=== PATIENT | female | born 1985 | race Caucasian/White ===

== ENCOUNTER 2020-04-20 12:41 | Emergency (ER) | payer OTHER, SELFPAY ==
[2020-04-20 12:50] VITALS: BP 151/82; PULSE 90; RESP 16; TEMP 36.4; O2SAT 99
--- NOTE | 2020-04-20 13:19 | ED.SKABFB ---
HPI - Skin/Abscess/Foreign Bdy General Chief complaint: Skin/Abscess/Foreign Body Stated complaint: Allergic Reaction Time Seen by Provider: 04/20/20 13:10 Source: patient and RN notes reviewed Mode of arrival: ambulatory Limitations: no limitations History of Present Illness HPI narrative: Patient presents today complaining of 4-day history of pruritic rash that started at the anterior bra line that spread to the bilateral upper arms that is now today in the lower abdomen and upper legs. Patient denies any change in household products, foods, medications, pets, plant exposure. She has been using Benadryl and aloe at home without relief. She is also complaining of left upper dental pain for several weeks. She has been working to try to see a dentist, but has been unable to make an appointment. Denies any recent antibiotic use. States the affected tooth is broken. Denies fever, shortness of breath, difficulty swallowing, facial swelling. MD complaint: rash Related Data Allergies Allergy/AdvReac Type Severity Reaction Status Date / Time codeine AdvReac Diarrhea Verified 04/20/20 12:56 Review of Systems Review of Systems: Narrative: CONSTITUTIONAL: Denies body aches, fever, chills, or sweats. EYES: Denies visual changes, redness, or discharge. ENT: Denies rhinorrhea, congestion, sore throat, or otalgia. Tooth pain CARDIOVASCULAR: Denies chest pain, palpitations, or edema. RESPIRATORY: Denies cough or dyspnea. GASTROINTESTINAL: Denies abdominal pain, nausea, vomiting, or diarrhea. GENITOURINARY: Denies dysuria or hematuria. SKIN: Denies wounds.+ Pruritic rash MUSCULOSKELETAL: Denies back pain, joint pain, or myalgia. NEUROLOGIC: Denies headache, numbness, tingling, or weakness. PSYCH: Denies depression or anxiety. PMFSH Comments At time of signature, I have reviewed and agree with nursing past medical, surgical, social and family history unless otherwise noted. Please see nursing chart for further information. There is no relevant family history pertinent to the presenting complaint Exam Narrative: Exam Narrative: GENERAL: Well-appearing, well-nourished, and in no acute distress. HEAD: Normocephalic, atraumatic. EYES: EOMI. No redness or drainage. Conjunctivae normal. ENT: Mucous membranes pink and moist. Nares clear. No rhinorrhea. TMs normal bilaterally. Throat normal. Uvula midline. Lateral portion of tooth #15 missing. No swelling or erythema of the gumline. No obvious periapical abscess. NECK: Normal AROM. Supple. No lymphadenopathy. CHEST: No respiratory distress. Clear to auscultation. HEART: Regular rate and rhythm. No murmur appreciated. Normal peripheral pulses. EXTREMITIES: Normal range of motion. No edema. SKIN: Warm, dry. Capillary refill normal. Normal skin turgor. Faintly erythematous papular rash to the lower abdominal fold and bilateral axilla as well as the anterior bra line. No vesicles, drainage, crusting, induration, or signs of cellulitis. NEURO: No focal deficits. Alert and oriented x3. Gait steady. PSYCH: Normal affect. No signs of depression or anxiety. Course Vital Signs Vital signs: Vital Signs Temperature 97.6 F 04/20/20 12:50 Pulse Rate 90 04/20/20 12:50 Respiratory Rate 16 04/20/20 12:50 Blood Pressure 151/82 H 04/20/20 12:50 Pulse Oximetry 99 04/20/20 12:50 Temperature 97.6 F 04/20/20 12:50 Pulse Rate 90 04/20/20 12:50 Respiratory Rate 16 04/20/20 12:50 Blood Pressure 151/82 H 04/20/20 12:50 Pulse Oximetry 99 04/20/20 12:50 Reviewed. Pt has been instructed to follow up with her PCP regarding her elevated blood pressure today. MDM - Skin/Abscess/Foreign Bdy Differential Diagnosis Differential diagnosis: Likely urticaria, herpes zoster, allergic reaction to drug, cellulitis, eczema, insect bites, impetigo, contact dermatitis and other (Dental abscess, dental fracture) Critical Care Time Critical Care Time Critical Care Time: No Discharge
== END 2020-04-20 13:25 | disposition home or self-care (01) ==
PROVIDERS: Emergency Provider Nurse Practitioner; PCP Internal Medicine
DX: L30.9 Dermatitis, unspecified (principal); S02.5XXA Fracture of tooth (traumatic), initial encounter for closed fracture; X58.XXXA Exposure to other specified factors, initial encounter
CPT/HCPCS: 99213; G0463

== ENCOUNTER 2020-11-15 15:05 | Emergency (ER) | payer OTHER, SELFPAY ==
--- NOTE | ~2020-11-15 | XR_ITS ---
XR chest 2V DATE: 11/15/2020 16:48 INDICATION: Cough for 5 days. Intermittent fever. TECHNIQUE: 2 views COMPARISON: None FINDINGS: Normal heart size. No hilar or mediastinal enlargement. No pulmonary infiltrate or consolid ation, pleural effusion or pulmonary vascular congestion or pneumothorax. IMPRESSION: Negative Reviewed, dictated and finalized at location A. IMPRESSION: Negative
[2020-11-15 15:36] VITALS: BP 126/79; PULSE 95; RESP 20; TEMP 36.9; O2SAT 99
--- NOTE | 2020-11-15 16:14 | ED.URI ---
HPI - URI/Sore Throat General Chief Complaint: Upper Respiratory Infection Stated Complaint: Sore Throat, fever, coughing, body pain Time Seen by Provider: 11/15/20 16:14 Source: patient Mode of arrival: ambulatory Limitations: no limitations History of Present Illness HPI Narrative: Sue Zavala is a 35 yo female with a PMH of chronic back pain [facility] of cold symptoms that started on and that are mild mainly in her sinuses and she is coughing, has intermittent fever. states feels tired Related Data Allergies Allergy/AdvReac Type Severity Reaction Status Date / Time codeine AdvReac Diarrhea Verified 11/15/20 16:25 Review of Systems Review of Systems: CONSTITUTIONAL: has fever, chills, sweats. EYES: Denies visual changes, redness, discharge. ENT: has rhinorrhea, has congestion, sore throat, bilateral otalgia. CARDIOVASCULAR: Denies chest pain, palpitations, edema. RESPIRATORY: Denies dyspnea, wheezing, dry cough GASTROINTESTINAL: Denies abdominal pain, nausea, vomiting, diarrhea. GENITOURINARY: Denies dysuria, hematuria, abnormal discharge SKIN: Denies rash or itching. NEUROLOGIC: Denies numbness, or focal weakness. PSYCHIATRIC: Denies anxiety or depression. REPLACED BY [facility] Past Medical History Medical History (Updated 11/15/20 @ 17:16 by Olga Tejeda CNP) Chronic back pain Social History Social History (Updated 11/15/20 @ 16:34 by Olga Tejeda CNP) Smoking packs per day: 0.5 Smoking cigarettes per day: 10.0 Smoking status: Current every day smoker Tobacco type: cigarettes Alcohol intake: current Comments At time of signature, I agree with nursing past medical, surgical, social and family history. There is no relevant family history pertinent to the presenting complaint. Exam Narrative: GENERAL: This is a well-nourished, well-developed patient, in mild distress. HEAD: normocephalic, atraumatic. EYES: Sclera clear/white. Vision is grossly intact. EARS: External ears normal, auditory canals erythematous and without drainage, TMs bulging on left without perforation. Hearing grossly intact. NOSE: External nose normal without nasal discharge, nares without redness, no rhinorrhea. THROAT: Mucous membranes moist, posterior pharynx mild erythema no exudate NECK: Neck supple, non-tender CARDIOVASCULAR: Regular rate and rhythm without murmurs, gallops, or rubs. RESPIRATORY: Clear to auscultation. Breath sounds equal bilaterally. No wheezes, rales, or rhonchi. GASTROINTESTINAL: Abdomen soft, non-tender, SKIN: warm, intact with no suspicious lesions or rash, good texture and turgor. NEURO: awake, alert, and oriented to person, place and time. There were no obvious focal neurologic abnormalities. Steady gait EXTREMITIES: Normal range of motion. BACK: Nontender without deformity Course Course Emergency Course: Patient comes with complaints of cough and chest pain with sinus drainage that is improving Chest x-ray shows negative for pulmonary infiltrate infiltrate or consolidation or pleural effusion Bilateral ear pain-treat with polymyxin eardrops, started on prednisone and albuterol inhaler and Tessalon Perles Vital Signs Vital signs: Vital Signs Temperature 98.5 F 11/15/20 15:36 Pulse Rate 95 11/15/20 15:36 Respiratory Rate 20 11/15/20 15:36 Blood Pressure 126/79 11/15/20 15:36 Pulse Oximetry 99 11/15/20 15:36 Temperature 98.5 F 11/15/20 15:36 Pulse Rate 95 11/15/20 15:36 Respiratory Rate 20 11/15/20 15:36 Blood Pressure 126/79 11/15/20 15:36 Pulse Oximetry 99 11/15/20 15:36 MDM - URI/Sore Throat Differential Diagnosis Differential diagnosis: Likely upper respiratory infection, sinusitis, viral infection, bronchitis and other Discharge Plan Discharge Clinical Impression: Bronchitis Patient Disposition: Home, Self-Care Condition: Stable Instructions: Antibiotic Form, Acute Bronchitis (ED) Additiona
== END 2020-11-15 17:20 | disposition home or self-care (01) ==
PROVIDERS: Emergency Provider Nurse Practitioner; PCP Internal Medicine
DX: J40 Bronchitis, not specified as acute or chronic (principal); F17.210 Nicotine dependence, cigarettes, uncomplicated
CPT/HCPCS: 71046; 99213; G0463

== ENCOUNTER 2021-07-14 12:18 | Emergency (ER) | payer OTHER, SELFPAY ==
[2021-07-14 12:24] VITALS: BP 144/78; PULSE 98; RESP 16; TEMP 36.8; O2SAT 99
--- NOTE | 2021-07-14 12:55 | ED.BACK ---
HPI - Back Pain/Injury General Chief Complaint: Back Pain/Injury Stated Complaint: lower back pain Time Seen by Provider: 07/14/21 12:55 Source: patient, RN notes reviewed and old records reviewed Mode of arrival: ambulatory Limitations: no limitations History of Present Illness HPI Narrative: 36 year old female who presents to [facility] with complaints of lower back pain radiating to legs was sent home from work last night due to pain Works as a [employer]. Patient denies any specific injury to her back does do a lot of heavy lifting at work, has had prior back pain with muscle spasms patient. Patient states pain similar to previous episode, reports pain started Sunday night of this week. Patient reports that pain is in her lower back and radiates down buttocks into posterior aspect of her legs to mid thigh area, reports some spasms noted .Patient denies any difficulty with passing her urine or stools, denies any saddle parastheia or any numbness to her legs. MD elicited complaint: back pain Pertinent past history: prior back pain Onset (ago): day(s) (2) Pain scale (0-10): 7 Quality: aching Location: lumbar spine Associated symptoms: other (muscle spasms) Treatments prior to arrival: acetaminophen Related Data Allergies Allergy/AdvReac Type Severity Reaction Status Date / Time codeine AdvReac Diarrhea Verified 07/14/21 12:56 Review of Systems Review of Systems: CONSTITUTIONAL: Denies fever, chills, or sweats. EYES: Denies visual changes, redness, or discharge. ENT: Denies rhinorrhea, congestion, sore throat, or otalgia. CARDIOVASCULAR: Denies chest pain, palpitations, or edema. RESPIRATORY: Denies cough or dyspnea. GASTROINTESTINAL: Denies abdominal pain, nausea, vomiting, or diarrhea. GENITOURINARY: Denies dysuria or hematuria or any CVA tenderness or any urinary symptoms SKIN: Denies rash or itching. MUSCULOSKELETAL: Positive for lower back pain with radiation to posterior legs down to mid thigh region, no other joint pain, or myalgia. NEUROLOGIC: Denies headache, numbness, or weakness. PSYCHIATRIC: Denies anxiety or depression. All systems reviewed & are unremarkable except as noted in HPI and below PMFSH Past Medical History Medical History Chronic back pain Social History Social History Smoking packs per day: 0.5 Smoking cigarettes per day: 10.0 Smoking status: Current every day smoker Tobacco type: cigarettes Alcohol intake: current Comments At time of signature, agree with nursing past medical, surgical, social and family history. There is no relevant family history pertinent to the presenting complaint Exam Narrative: GENERAL: Well-appearing, well-nourished, and in no acute distress. HEAD: Normocephalic, atraumatic. EYES: PERRLA and EOMI. ENT: Nares clear, no rhinorrhea or epistaxis. Mucous membranes moist.TM;s normal with good light reflex, throat pink with no abnormalities noted. NECK: Supple.no lymphadenopathy CHEST: Clear to auscultation. No respiratory distress.SAO2 99% on room air HEART: Regular rate and rhythm. No murmur heard. Normal peripheral pulses. ABDOMEN: Soft, nontender, nondistended, normal active bowel sounds. EXTREMITIES: Normal range of motion. No edema.Pain to lower lumbar back with radiation posterior to mid thigh area withspasms stated, no tingling or numbness to legs voiced, no saddle paraesthesia, strong pulses to feet noted. gait slow an steady SKIN: Warm, dry, no rash. NEURO: No focal deficits. Alert and oriented x3. Course Course Level of Care: Express Care Visit Vital Signs Vital signs: Vital Signs Temperature 36.8 C 07/14/21 12:24 Pulse Rate 98 07/14/21 12:24 Respiratory Rate 16 07/14/21 12:24 Blood Pressure 144/78 H 07/14/21 12:24 Pulse Oximetry 99 07/14/21 12:24 Temperature 36.8 C 07/14/21 12:24 Pulse Rate 98 07/14/21 12:24 Respiratory R
== END 2021-07-14 13:12 | disposition home or self-care (01) ==
PROVIDERS: Emergency Provider Registered Nurse; PCP Internal Medicine
DX: M54.50 Low back pain, unspecified (principal); M54.16 Radiculopathy, lumbar region; F17.219 Nicotine dependence, cigarettes, with unspecified nicotine-induced disorders
CPT/HCPCS: 99213; G0463

== ENCOUNTER 2024-09-03 14:06 | Emergency (ER) | payer OTHER, SELFPAY ==
--- NOTE | 2024-09-03 14:12 | ED.LOWEXIN ---
HPI - Extremity Injury (Lower) General Chief Complaint: Extremity Injury, Lower Stated Complaint: Left Leg Pain Time Seen by Provider: 09/03/24 14:12 Source: patient Mode of arrival: ambulatory Limitations: no limitations History of Present Illness HPI Narrative: 39 yo F presents with c/o pain to L thigh, buttock for 3 to 4 days. no injury. feels like muscle tightening up and is weak. Worse with position changes. Denies back pain. Ambulatory with steady gait. No loss of bowel or bladder. all systems reviewed and negative except as noted above. Related Data Allergies Allergy/AdvReac Type Severity Reaction Status Date / Time codeine AdvReac Diarrhea Verified 09/03/24 14:15 Review of Systems Review of Systems: CONSTITUTIONAL: Denies fever, chills, or sweats. EYES: Denies visual changes, redness, or discharge. ENT: Denies rhinorrhea, congestion, sore throat, or otalgia. CARDIOVASCULAR: Denies chest pain, palpitations, or edema. RESPIRATORY: Denies cough or dyspnea. GASTROINTESTINAL: Denies abdominal pain, nausea, vomiting, or diarrhea. GENITOURINARY: Denies dysuria or hematuria. SKIN: Denies rash or itching. MUSCULOSKELETAL: Denies back pain, joint pain, or myalgia. Reports left leg pain. NEUROLOGIC: Denies headache, numbness, or weakness. PSYCHIATRIC: Denies anxiety or depression. All other systems reviewed are negative, except as documented in HPI. [facility] Past Medical History Medical History Chronic back pain Social History Social History Smoking packs per day: 0.5 Smoking cigarettes per day: 10.0 Smoking status: Current every day smoker Tobacco type: cigarettes Alcohol intake: current Comments At time of signature, agree with nursing past medical, surgical, social and family history. There is no relevant family history pertinent to the presenting complaint. Exam Narrative: GENERAL: This is a well-nourished, well-developed patient, in no apparent distress. HEAD: normocephalic, atraumatic. EYES: PERRL. Sclera clear/white. Vision is grossly intact. EARS: External ears normal NOSE: External nose normal NECK: Neck supple, non-tender without lymphadenopathy, masses or thyromegaly. CARDIOVASCULAR: Regular rate and rhythm without murmurs, gallops, or rubs. RESPIRATORY: Clear to auscultation. Breath sounds equal bilaterally. No wheezes, rales, or rhonchi. SKIN: warm, Dry, intact with no suspicious lesions or rash, good texture and turgor. NEURO: awake, alert, and oriented to person, place and time. There were no obvious focal neurologic abnormalities. EXTREMITIES: No joint tenderness, effusion, or edema noted. No calf tenderness. Negative Homans sign bilaterally. BACK: No midline tenderness. tenderness to left SI. Lower extremity strength 5 of 5 bilaterally. Positive left straight leg raise. Course Course Level of Care: Express Care Visit Vital Signs Vital signs: Reviewed MDM - Extremity Injury (Lower) MDM Narrative Medical decision making narrative: treat sciatica with Robaxin, prednisone ibuprofen. Recommend back stretches. Recommend ice and heat. Will follow primary care physician will go to the ER for any worsening of symptoms. No neuro deficits time of discharge. Discharge Plan Discharge Clinical Impression: Sciatica, left side Patient Disposition: Home Condition: Stable Instructions: Sciatica (ED), Lower Back Exercises (ED) Additional Instructions: Take medications as prescribed. Methocarbamol as a muscle relaxant. This medication may cause drowsiness. Do not drive while taking it. Take ibuprofen Or Tylenol every 6-8 hours as needed for pain. alternate between ice and heat. Do sciatica stretches found in discharge packet. Follow-up with your doctor if pain is not improving. Patient Language: Kazakh Prescriptions: New ibuprofen 800 mg tablet 800 mg PO TID PRN (Reason: pain) Qty: 30 0RF prednisone 20 mg tablet See Rx Instructions .ROUTE .COMPLEX Qty: 12 0RF Rx Instructions: Take 3 tablets today, then 2 tablets daily for 3 days then 1 tablet daily for 3 days. methocarbamol 750 mg tablet 750 mg PO Q8H PRN (Reason: muscle pain/spasm) Qty: 30 0RF Follow-up/Referrals: Carlos,MD Bobby [Primary Care Provider] - Stand Alone Forms: Work/School Release IP Time of Disposition: 14:22
[2024-09-03 14:16] VITALS: BP 167/91; PULSE 82; RESP 18; TEMP 36.9; O2SAT 99
--- OUTSIDE RECORDS SUMMARY | 2024-09-03 16:58 | XMS_ITS | Referral Summary ---
Author Organization [facility] Address [address] [place] [address] Care Team Providers Care Fiberline Supervisor Name Role Phone Bobby Gonzalez MD Primary Care Provider [phone] Encounters Date Type Department Care Team Description 06/16/2024 6:54 PM CDT - 06/16/2024 9:39 PM CDT Emergency [facility] Emergency Department [address] [place], [place] [address] Car Rosas MD Atypical chest pain (Primary Dx) Discharge Disposition: Discharge to home or self care from Last 3 Months Allergies Active Allergy Reactions Criticality Noted Date Comments Azithromycin Codeine Medications naproxen (NAPROSYN) 500 mg tablet Take 1 tablet (500 mg total) by mouth 2 (two) times a day with meals 30 tablet 08/20/2018 Active lidocaine viscous (XYLOCAINE) 2 % solution Take 10 mL by mouth every 3 (three) hours 1 Bottle 05/07/2020 Active methocarbamoL (ROBAXIN) 500 mg tablet Take 1 tablet (500 mg total) by mouth 2 (two) times a day 20 tablet 06/16/2024 Active Active Problems No known active problems Social History Tobacco Use Types Packs/Day Years Used Date Smoking Tobacco: Every Day Cigarettes Smokeless Tobacco: Never Comments:Smoking History Pac ks/day: 0.5 Packs Alcohol Use Standard Drinks/Week Comments Yes 0 (1 standard drink = 0.6 oz pur e alcohol) occasionally Personal Safety Answer Date Recorded Have you ever been in or are you currently in a harmful physical or emotional relationship or is someone making you feel afraid or unsafe? 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 Gender Identity Not on file Sexual Orientation Not on file Last Filed Vital Signs Vital Sign Reading Time Taken Comments Blood Pressure 123/78 06/16/2024 9:30 PM CDT Pulse 71 06/16/2024 9:30 PM CDT Temperature 36.5 C (97.7 F) 06/16/2024 4:29 PM CDT Respiratory Rate 15 06/16/2024 9:30 PM CDT Oxygen Saturation 97% 06/16/2024 9:30 PM CDT Inhaled Oxygen Concentration - - Weight 102.1 kg (225 lb) 06/16/2024 4:29 PM CDT Height 170.2 cm (5' 7) 05/07/2020 4:36 PM MEAT C[employer]TING BLOCK REPAIRER Body Mass Index 35.24 05/07/2020 4:36 PM ME[employer] C[employer]TING BLOCK REPAIRER Plan of Treatment Not on file Procedures Procedure Name Priority Date/Time Associated Diagnosis Comments URINALYSIS, MICROSCOPIC ONLY STAT 06/16/2024 8:27 PM CDT DRUGS OF ABUSE SCREEN, URINE WITHOUT CONFIRMATION Timed 06/16/2024 8:27 PM CDT HCG, URINE, QUALITATIVE STAT 06/16/2024 8:27 PM CDT URINALYSIS AND REFLEX TO MICROSCOPIC AND CULTURE STAT 06/16/2024 8:27 PM CDT TROPONIN T HIGH-SENSITIVITY 4-HR Timed 06/16/2024 8:18 PM CDT CRP (ACUTE PHASE) Add-On 06/16/2024 8:1 7 PM CDT TROPONIN T HIGH-SENSITIVITY 2-HOUR Timed 06/16/2024 7:06 PM CDT XR CHEST 1 VIEW ED 06/16/2024 4:44 PM CDT D-DIMER, QUANTITATIVE Add-On 06/16/2024 4:34 PM CDT PRO B-TYPE NATRIURETIC PEPTIDE Add-On 06/16/2024 4:34 PM CDT EGFR STAT 06/16/2024 4:34 PM CDT DIFFERENTIAL AUTO STAT 06/16/2024 4:3 4 PM CDT TROPONIN T HIGH-SENSITIVITY SERIES (BASELINE, 2HR, 4HR, 6HR) STAT 06/16/2024 4:34 PM CDT COMPREHENSIVE METABOLIC PANEL STAT 06/16/2024 4:34 PM CDT CBC WITH AUTO DIFFERENTIAL STAT 06/16/2024 4:34 PM CDT ECG 12-LEAD STAT 06/16/2024 4:28 PM CDT HEPATITIS C ANTIBODY Routine 02/11/2013 1:16 PM MEAT CUTTING BLOCK REPAIRER THINPREP IMAGING PAP REFLEX HPV MRNA E6/E7 Routine 02/11/2013 1:16 PM MEAT CUTTING BLOCK REPAIRER from Last 3 Months or Most Recently Relevant to Health Maintenance Results * (ABNORMAL) Urinalysis reflex to microscopic and culture Urine (06/16/2024 8:27 PM CDT) Color, ur Yellow Yellow Clarity, ur Clear Clear [facility] ([place]) Specific gravity, ur 1.031(H) 1.003 - 1.030 [facility] ([place]) pH, urine 6.0 [facility] ([place]) Comment: Interpretive Data U rine pH is affected by diet, medications, systemic acid-base disturbances, and renal tubular function. pH may affect urinary stone formation. For example, urine pH below 6.0 may help reduce the tendency for calcium phosphate stones and pH greater than 6.0 may reduce the tendency for uric acid stone formation. Source: [employer] Current Interpretive Data was last revised on 2017 Protein, ur ql Negative Negative [facility] ([place]) Glucose, ur ql Negative Negative [facility] ([place]) Ketones, ur Negative Negative [facility] ([place]) Bilirubin, ur Negative Negative [facility] ([place]) Blood, ur Negative Negative [facility] ([place]) Urobilinogen, ur 2.0(A) <2.0 mg/dL [facility] ([place]) Nitrite, ur Negative Negative [facility] ([place]) Leukocyte esterase, ur 1+(A) Negative [facility] ([place]) UA reflex comment Reflex to microscopic UA will be performed. [facility] ([place]) Urine 06/16/2024 8:27 PM CDT 06/16/2024 8:31 PM CDT Car Rosas MD LAB MICROBIOLOGY - GENERAL O RDERABLES Final Result [facility] ([place]) 1 [facility] [place] [address] * Drugs of Abuse Screen, Urine without Confirmation (06/16/2024 8:27 PM CDT) Amphetamine, ur Not Detected CutOff 500ng/mL Comment: Interpretive Data - Amphetamines: Samples containing greater than 500 ng/mL d-methamphetamine or other cross-reacting amphetamine compounds are reported as positive. Amphetamine immunoassays are subject to significant false positive rates due to cross-reactivity of non-amphetamine drugs. Confirmatory testing required for definitive results. Current Interpretive Data was last reviewed 2022. Barbiturates, ur Not Detected CutOff 200ng/mL [facility] ([place]) Comment: Interpretive Data - Barbiturates: Samples containing greater than 200 ng/mL secobarbital or other cross-reacting barbiturate compounds are reported as positive. False positive and false negative results are possible. Confirmatory testing required for definitive results. Current Interpretive Data was last reviewed 2022. Benzodiazepines, ur Not Detected CutOff 100ng/mL [facility] ([place]) Comment: Interpretive Data - Benzodiazepines: Samples containing greater than 100 ng/mL nordiazepam or other cross-reacting compounds are reported as positive. False positive and false negative results are possible. Confirmatory testing required for definitive results. Current Interpretive Data was last reviewed 2022. Cannabinoids, ur Not Detected CutOff 50 ng/mL [facility] ([place]) Comment: Interpretive Data - Cannabinoids: Samples containing greater than 50 ng/mL delta-9 THC -COOH or other cross- reacting compounds are reported as positive. False positive and false negative results are possible. Confirmatory testing required for definitive results. Current Interpretive Data was last reviewed 2022. Cocaine, ur Not Detected CutOff 150ng/mL [facility] ([place]) Comment: Interpretive Data - Cocaine: Samples containing greater than 150 ng/mL benzoylecgonine or other cross- reacting compounds are reported as positive. False positive and false negative results are possible. Confirmatory testing required for definitive results. Current Interpretive Data was last reviewed 2022. Fentanyl, Ur Not Detected CutOff 5 ng/mL [facility] ([place]) Comment: Interpretive Data - Fentanyl: Samples containing greater than 5 ng/mL norfentanyl, fentanyl, or other cross-reacting fentanyl compounds are reported as positive. False positive and false negative results are possible. Confirmatory testing required for definitive results. Current Interpretive Data was last reviewed 2023. Methadone, ur Not Detected CutOff 300ng/mL [facility] ([place]) Comment: Interpretive Data - Methadone: Samples containing greater than 300 ng/mL d,l-methadone or other cross-reacting compounds are reported as positive. False positive and false negative results are possible. Confirmatory testing required for definitive results. Current Interpretive Data was last reviewed 2022. Opiates, ur Not Detected CutOff 300ng/mL [facility] ([place]) Comment: Interpretive Data - Opiates: Samples containing greater than 300 ng/mL morphine or other cross-reacting compounds are reported as positive. False positive and false negative results are possible. Confirmatory testing required for definitive results. Current Interpretive Data was last reviewed 2022. Oxycodone, ur Not Detected CutOff 100ng/mL [facility] ([place]) Comment: Interpretive Data - Oxycodone: Samples containing greater than 100 ng/mL oxycodone or other cross-reacting compounds are reported as positive. False positive and false negative results are possible. Confirmatory testing required for definitive results. Current Interpretive Data was last reviewed 2022. Phencyclidine, ur Not Detected CutOff 25 ng/mL [facility] ([place]) Comment: Interpretive Data - Phencyclidine: Samples containing greater than 25 ng/mL phencyclidine or other cross-reacting compounds are reported as positive. False positive and false negative results are possible. Confirmatory testing required for definitive results. Current Interpretive Data was last reviewed 2022. Urine Creatinine 206 mg/dL [facility] ([place]) Comment: Interpretive Data Urine Creatinine: < 10 mg/dL is extremely dilute = or > 10 but < 20 mg/dL is dilute = or > 20 mg/dL is normal Current Interpretive Data was last revised on 2017. Urine 06/16/2024 8:27 PM CDT 06/16/2024 8:31 PM CDT Narrative [facility] ([place]) - 06/16/2024 9:13 PM CDT Drug of Abuse screening is performed by immunoassay for medical purposes only. This is not to be used for Pain Management purposes. Car Rosas MD LAB URINE ORDERABLES Final R esult Performing Organization Address [facility] Co de Phone Number [facility] ([place]) [address] [facility] [place] [address] * hCG, urine, qualitative (06/16/2024 8:27 PM CDT) HCG, ur Negative Negative Urine 06/16/2024 8:27 PM CDT 06/16/2024 8:41 PM CDT Car Rosas MD LAB URINE ORDERABLES Final R esult Performing Organization Address [facility] Co de Phone Number [facility] ([place]) [address] [facility] [place] [address] * (ABNORMAL) Urinalysis, microscopic only (06/16/2024 8:27 PM CDT) WBC, ur 0-5 0 - 5 /HPF RBC, ur 0-2 0 - 2 /HPF [facility] ([place]) Epithelial cells, squamous, ur 1-5 0 - 5 /HPF [facility] ([place]) Bacteria, ur Trace(A) [facility] ([place]) Mucous, ur Present(A) [facility] ([place]) Culture Reflex Comment Reflex conditions for urine culture (WBC >10) not met. [facility] ([place]) Urine 06/16/2024 8:27 PM CDT 06/16/2024 8:41 PM CDT Car Rosas MD LAB URINE ORDERABLES Final R esult Performing Organization Address [facility] Co de Phone Number [facility] ([place]) [address] [facility] [place] [address] * Troponin T high-sensitivity 4-hour (06/16/2024 8:18 PM CDT) Trop T hs <6 <=14 ng/L Comment: Interpretive Data For further hscTnT resources including the diagnostic algorithm and an aid in interpretation, copy and paste this link: https://nrl.testcatalog.org/show/hsTrop Current Interpretive Data last revised 2020. Trop T hs delta 0 ng/L [facility] ([place]) Trop T hs interp Insignificant [facility] ([place]) Blood 06/16/2024 8:18 PM CDT 06/16/2024 8:21 PM CDT Car Rosas MD LAB BLOOD ORDERABLES Final R esult Performing Organization Address City/[facility]/ZIP Co de Phone Number [facility] ([place]) [address] [facility] [place] [address] * CRP (acute phase) (06/16/2024 8:17 PM CDT) CRP 4.4 <=10.0 mg/L Blood 06/16/2024 8:17 PM CDT 06/16/2024 8:37 PM CDT Car Rosas MD LAB BLOOD ORDERABLES Final R esult Performing Organization Address City/[facility]/ZIP Co de Phone Number [facility] ([place]) 1 [facility] [place] [employer] [place] [address] * Troponin T high-sensitivity 2-hour (06/16/2024 7:06 PM CDT) Trop T hs <6 <=14 ng/L Comment: Interpretive Data For further hscTnT resources including the diagnostic algorithm and an aid in interpretation, copy and paste this link: https://nrl.testcatalog.org/show/hsTrop Current Interpretive Data last revised 2020. Trop T hs delta 0 ng/L [facility] ([place]) Trop T hs interp Insignificant [facility] ([place]) Blood 06/16/2024 7:06 PM CDT 06/16/2024 7:09 PM CDT Car Rosas MD LAB BLOOD ORDERABLES Final R esult Performing Organization Address [facility]/ZIP Co de Phone Number [facility] ([place]) 1 [facility] [place] [address] * XR Chest 1 Vw Portable (if patient condition/safety warrant portable) (06/16/2024 4:44 PM CDT) Anatomical Region Laterality Modality Body, Chest N/A Computed Radiogr aphy 06/16/2024 5:08 PM CDT Narrative 06/16/2024 5:09 PM CDT EXAM DESCRIPTION: XR CHEST 1 VIEW REASON FOR STUDY: chest pain Pt arrives to ED via POV for chest pain that started at 1400 today. Pt states the it feels like pressure. Pt c/o palpitations. No cardiac hx. TECHNIQUE: Single radiographic view(s) of the chest. COMPARISON: 08/19/2018 FINDINGS: LUNGS: Allowing for overlying soft tissues, the lungs appear grossly clear. No consolidation or effusion is seen. HEART/MEDIASTINUM: Cardiac silhouette normal in size. Mediastinal and hilar contours appear normal. LINES/TUBES: None. BONES: No acute osseous abnormality. IMPRESSION: No acute cardiopulmonary abnormality. THIS IS AN ELECTRONICALLY VERIFIED FINAL REPORT 06/16/2024 5:09 PM - Electronically signed by Nate LEE: ROSA Report ID: [id number] Reading Location: [place] [address] Procedure Note Nate Ferrara MD - 06/16/2024 EXAM DESCRIPTION: XR CHEST 1 VIEW REASON FOR STUDY: chest pain Pt arrives to ED via POV for chest pain that started at 1400 today. Ptstates the it feels like pressure. Pt c/o palpitations. No cardiac hx. TECHNIQUE: Single radiographic view(s) of the chest. COMPARISON: 08/19/2018 FINDINGS: LUNGS: Allowing for overlying soft tissues, the lungs appear grosslyclear. No consolidation or effusion is seen. HEART/MEDIASTINUM: Cardiac silhouette normal in size. Mediastinal andhilar contours appear normal. LINES/TUBES: None. BONES: No acute osseous abnormality. IMPRESSION: No acute cardiopulmonary abnormality. THIS IS AN ELECTRONICALLY VERIFIED FINAL REPORT 06/16/2024 5:09 PM - Electronically signed by Nate Ferrara M.D. KH: ROSA Report ID: [id number] Reading Location: [place] [address] Car Rosas MD IMG XR PROCEDURES Final Resu lt * Troponin T high-sensitivity series (baseline, 2hr, 4hr, 6hr) (06/16/2024 4:34 PM CDT) Trop T hs <6 <=14 ng/L Comment: Interpretive Data For further hscTnT resources including the diagnostic algorithm and an aid in interpretation, copy and paste this link: https://nrl.testcatalog.org/show/hsTrop Current Interpretive Data last revised 2020. Blood 06/16/2024 4:34 PM CDT 06/16/2024 4:36 PM CDT Car Rosas MD LAB BLOOD ORDERABLES Final R esult [facility] ([place]) 1 [facility] [employer] [place] [employer] [place] [address] * eGFR (06/16/2024 4:34 PM CDT) Pathologist [facility] eGFR >90 >=60 mL/min/1. 73 m2 Comment: Interpretive Data Reference Interval Normal >/= 90 mL/min/1.73m2 Mildly decreased* 60 - 89 mL/min/1.73m2 Mildly to moderately decreased 45 - 59 mL/min/1.73m2 Moderately to severely decreased 30 - 44 mL/min/1.73m2 Severely decreased 15 - 29 mL/min/1.73m2 Kidney Failure < 15 mL/min/1.73m2 *Relative to young adult level Estimated glomerular filtration rate is determined by the 2020 CKD-EPI equation recommended by the National Kidney Foundation (A Unifying Approach to GFR Estimation: Recommendations of the NKF-ASK Task Force on Reassessing the Inclusion of Race in Diagnosing Kidney Disease, JASN 2020). The CKD-EPI equation should not be used for patients with unstable renal function and has not been validated in children and those over 70. Current interpretive data was last reviewed 2021. Blood 06/16/2024 4:34 PM CDT 06/16/2024 4:36 PM CDT Car Rosas MD LAB BLOOD ORDERABLES Final R esult [facility] ([place]) 1 [facility] [place] [employer] [place] [address] * (ABNORMAL) Differential, auto (06/16/2024 4:34 PM CDT) Neutrophil abs 8.5(H) 1.5 - 6.5 K/cumm Imm gran abs 0.0 0.0 - 0.1 K/cumm [facility] ([place]) Lymphocyte abs 5.3(H) 0.8 - 3.3 K/cumm [facility] ([place]) Monocyte abs 0.8 0.2 - 0.8 K/cumm [facility] ([place]) Eosinophil abs 0.1 0.0 - 0.5 K/cumm [facility] ([place]) Basophil abs 0.0 0.0 - 0.1 K/cumm [facility] ([place]) Neutrophil pct 57.3 % [facility] ([place]) Comment: Interpretive Data Percent cell count reference ranges are not reported, since discordance with absolute values may lead to misinterpretation of CBC data. Current Interpretive Data was last revised on 2017. Imm gran pct 0.3 % [facility] ([place]) Comment: Interpretive Data Percent cell count reference ranges are not reported, since discordance with absolute values may lead to misinterpretation of CBC data. Current Interpretive Data was last revised on 2017. Lymphocyte pct 35.9 % [facility] ([place]) Comment: Interpretive Data Percent cell count reference ranges are not reported, since discordance with absolute values may lead to misinterpretation of CBC data. Current Interpretive Data was last revised on 2017. Monocyte pct 5.4 % [facility] ([place]) Comment: Interpretive Data Percent cell count reference ranges are not reported, since discordance with absolute values may lead to misinterpretation of CBC data. Current Interpretive Data was last revised on 2017. Eosinophil pct 0.8 % [facility] ([place]) Comment: Interpretive Data Percent cell count reference ranges are not reported, since discordance with absolute values may lead to misinterpretation of CBC data. Current Interpretive Data was last revised on 2017. Basophil pct 0.3 % [facility] ([place]) Comment: Interpretive Data Percent cell count reference ranges are not reported, since discordance with absolute values may lead to misinterpretation of CBC data. Current Interpretive Data was last revised on 2017. Blood 06/16/2024 4:34 PM CDT 06/16/2024 4:36 PM CDT Car Rosas MD LAB BLOOD ORDERABLES Final R esult Performing Organization Address City/[facility]/ZIP Co de Phone Number [facility] ([place]) 1 [facility] [place] [address] * Pro B-type natriuretic peptide (06/16/2024 4:34 PM CDT) NT-proBNP <36 <=300 pg/mL Comment: Interpretive Comments: A. Dyspnea in Acute Care Setting All Ages: < 300 pg/ml, acute heart failure unlikely. < 50 yrs: 300 - 450 pg/ml, further investigation warranted. > 450 pg/ml, acute heart failure likely. 50 - 74 yrs: 300 - 900 pg/ml, further investigation warranted. > 900 pg/ml, acute heart failure likely . > or = 75 yrs: 450 - 1800 pg/ml, further investigation warranted. > 1800 pg/ml, acute heart failure likely. B. Non-acute Setting < 75 yrs < 125 pg/ml, rules out heart failure. > or = 125 pg/ml, further investigation warranted. > or = 75 yrs < 450 pg/ml, rules out heart failure. > or = 450 pg/ml, further investigation warranted. - Knowledge of each individual patient's NT-proBNP range may be more useful than using similar cut-points for every patient. Please note that marked elevations in NT-proBNP levels may be observed in state other than Left Ventricular Congestive Failure, including: acute coronary syndromes, right heart strain/failure (including pulmonary embolism and cor pulmonale), critical illness, renal failure, as well as advanced age. - References: 1. Oumar VELEZ et.al. Eur Heart J. 2006:27:330-337. 2. Flory RW, Thanh CLINTON. J. AM Zulay Cardiol: Cardiovasc Imag. 2009;2: 216- 225. Interpretive Data Last Revised Date: 2017. Blood 06/16/2024 4:34 PM CDT 06/16/2024 7:47 PM CDT Car Rosas MD LAB BLOOD ORDERABLES Final R esult Performing Organization Address City/[facility]/ZIP Co de Phone Number [facility] ([place]) 1 [facility] [place] [address] * (ABNORMAL) CBC with auto differential (06/16/2024 4:34 PM CDT) WBC 14.9(H) 3.8 - 9.9 K/cumm Hgb 14.5 11.9 - 15.5 g/dL [facility] ([place]) Hct 42.8 35.6 - 45.5 % [facility] ([place]) Plt 269 150 - 400 K/cumm [facility] ([place]) MPV 9.4 9.1 - 12.3 fL [facility] ([place]) RBC 4.63 3.90 - 5.20 M/cumm [facility] ([place]) MCV 92.4 81.3 - 96.4 fL [facility] ([place]) MCH 31.3 27.1 - 33.3 pg [facility] ([place]) MCHC 33.9 32.3 - 35.7 g/dL [facility] ([place]) RDW CV 12.7 11.1 - 14.9 % [facility] ([place]) RDW SD 43.2 35.7 - 48.1 fL [facility] ([place]) NRBC abs 0.00 0.00 - 0.01 K/cumm [facility] ([place]) Blood Venous blood specimen / Unknown 06/16/2024 4:34 PM CDT 06/16/2024 4:36 PM CDT Car Rosas MD LAB BLOOD ORDERABLES Final R esult [facility] ([place]) 1 [facility] [place] [address] * D-dimer, quantitative (06/16/2024 4:34 PM CDT) D-Dimer 314 <=499 ng/mL FEU [facility] ([place]) Comment: Interpretive data FDA approved the D-dimer, in conjunction with a low or moderate pretest probability score, to exclude venous thromboembolic events (VTE) (PE and DVT) in outpatients when the D-dimer result is < 500 ng/ml FEU. Evidence supports using an age-adjusted D-dimer cut-off for outpatients older than 50 (age x 10) to improve specificity without sacrificing sensitivity. Example: age 68, VTE cut-off 680 ng/ml FEU. References; Schilda HT et al. Brit Med J. 2013;346:f2492. Uvaldo RODRIGUEZ et al. Annals Int Med. 2015;163:701-11. Current interpretive data was last revised on 2019. Blood 06/16/2024 4:34 PM CDT 06/16/2024 7:47 PM CDT us Car Rosas MD LAB BLOOD ORDERABLES Final R esult [facility] ([place]) 1 [facility] [place] [address] * Comprehensive metabolic panel (06/16/2024 4:34 PM CDT) Sodium 137 135 - 145 mmol/L Potassium, pl 4.1 3.3 - 4.9 mmol/L [facility] ([place]) Chloride 104 97 - 110 mmol/L [facility] ([place]) CO2 23 22 - 32 mmol/L [facility] ([place]) Anion gap 10 2 - 15 mmol/L [facility] ([place]) BUN 12 6 - 25 mg/dL [facility] ([place]) Creatinine 0.81 0.60 - 1.10 mg/dL [facility] ([place]) Glucose 92 70 - 199 mg/dL [facility] ([place]) Comment: Interpretive Data Fasting glucose >/= 126 mg/dl is diagnostic for diabetes. Fasting is defined as no caloric intake for at least 8 hours. Fasting glucose between 100 mg/dl to 125 mg/dl is diagnostic of prediabetes. In a patient with classic symptoms of hyperglycemia or hyperglycemic crisis, a random glucose >/= 200 mg/dl is diagnostic for diabetes. In the absence of unequivocal hyperglycemia, results should be confirmed by repeat testing. The classification and Diagnosis of Diabetes Diabetes Care 2021; 46: S19-S40. Current interpretive data was last revised 2022. Calcium 9.1 8.5 - 10.3 mg/dL [facility] ([place]) Bilirubin, total <0.2 0.1 - 1.2 mg/dL [facility] ([place]) Protein, pl 7.1 6.5 - 8.5 g/dL [facility] ([place]) Albumin 4.4 3.5 - 5.0 g/dL [facility] ([place]) Alk phos 72 40 - 130 Units/L [facility] ([place]) ALT 27 7 - 45 Units/L [facility] ([place]) AST 20 10 - 45 Units/L [facility] ([place]) Comment:Slightly Hemolyzed S pecimen Blood 06/16/2024 4:34 PM CDT 06/16/2024 4:36 PM CDT Car Rosas MD LAB BLOOD ORDERABLES Final R esult [facility] ([place]) 1 [facility] [place] [address] * ECG 12 lead (06/16/2024 4:28 PM CDT) 06/16/2024 4:28 PM CDT Narrative [facility] - 06/17/2024 6:28 AM CDT Vent Rate: 86 bpm RR Interval: 695 msec VT Interval: 155 msec QRS Duration: 86 msec QT Interval: 338 msec QTC Interval: 381 msec P-R-T [place]: 52 - 28 - 39 degrees IMPRESSION: SINUS RHYTHM NORMAL ECG Electronically Signed By: Carl Guy MD Car Rosas MD ECG ORDERABLES Final Result [facility] [employer] [facility] * [employer] Imaging Pap Reflex HPV mRNA E6/E7 (02/11/2013 1:16 PM MEAT CUTTING BLOCK REPAIRER) SOURCE: SEE NOTE [facility] HISTORICAL RESULTS Comment:Cervix, Endocervix CLINICAL INFORMATION: SEE NOTE [facility] HISTORICAL RESULTS Comment: LMP SEE NOTE [facility] HISTORICAL RESULTS Comment:05/05 Previous Pap SEE NOTE [facility] HISTORICAL RESULTS Comment:INFORMATION NOT PROV IDED Prev. Bx SEE NOTE [facility] HISTORICAL RESULTS Comment:INFORMATION NOT PROV IDED Pap, specimen adequacy SEE NOTE [facility] HISTORICAL RESULTS Comment: Satisfactory for evaluation. Endocervical/transformation zone component present. HPV interp SEE NOTE [facility] HISTORICAL RESULTS Comment:Negative for intraep ithelial lesion or malignancy. Lactobacillus species SEE NOTE [facility] HISTORICAL RESULTS Comment: This Pap test has been evaluated with computer assisted technology. Induction Coordination Power Engineer SEE NOTE QUE ST HISTORICAL RESULTS Comment: ABC, CT(ASCP) Test performed at [facility] [address] Director: NICOLE CHIU DO, MPH 02/11/2013 1:16 PM MEAT CUTTING BLOCK REPAIRER Humera Toth MD LAB PATHOLOGY ORDER [place] Final Result Performing Organization Address City/[facility] Co de Phone Number [facility] HISTORICAL RESULTS * Hepatitis C antibody (02/11/2013 1:16 PM MEAT CUTTING BLOCK REPAIRER) Pathologist [facility] Hep C Ab NON-REACT ISAIAH NON-REACT ISAIAH [facility] HISTORICAL RESULTS SIGNAL TO CUT-OFF 0.02 <1.00 [facility] HISTORICAL RESULTS Comment: Test performed at [facility] [place] [address] [place] [address] Director: NICOLE CHIU DO,MPH 02/11/2013 1:16 PM MEAT CUTTING BLOCK REPAIRER Humera Toth MD LAB MICROBIOLOGY - GENERAL ORDERABLES Final Result Performing Organization Address City/[facility] Co de Phone Number [facility] HISTORICAL RESULTS from Last 3 Months or Most Recently Relevant to Health Maintenance Insurance [facility] Care Teams Fiberline Supervisor Relationship Specialty Start Date End Date Bobby Gonzalez MD [address] [facility] [address] [place] [id number] PCP - General 07/19/16
--- OUTSIDE RECORDS SUMMARY | 2024-09-03 16:58 | XMS_ITS | Clinical Summary ---
Author Organization [facility] Address [address] [place] [address] Care Team Providers Care Director Sales Support Name Role Phone Bobby Gonzalez MD Primary Care Provider [phone] Allergies Active Allergy Reactions Criticality Noted Date [...] Active Active Problems No known active problems Encounters Date Type Department Care Team Description 06/16/2024 6:54 PM CDT - 06/16/2024 9:39 PM CDT Emergency [facility] Emergency Department [address] [place] [address] Car Rosas MD Atypical chest pain (Primary Dx) Discharge Disposition: Discharge to home or self care from Last 3 Months Surgical History Surgery Date Site/Laterality Comments OTHER SURGICAL HISTORY 1995 Recurrent ear infections: T&A, tubes in ears OTHER SURGICAL HISTORY 2006 : 5 hr labor OTHER SURGICAL HISTORY 2011 : spontaneous OTHER SURGICAL HISTORY 2013 : 10 hr labor OTHER SURGICAL HISTORY 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 Medical History Medical History Date Comments Hx Other Medical 1995 Recurrent ear i nfections Hx Other Medical 2006 ; Comm ents: Augmented for SROM.; Outcome: 39 1/2 week 6 lb(s) 7 oz Female Hx Other Medical 2011 ; Comm ents: No D&C required.; Outcome: 6 week Unknown sex Hx Other Medical 2013 ; Outc ome: 41 week 9 lb(s) 7 oz Male Hx Other Medical 2013 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 Family History Medical History Relation Name Comments Other Father Unknown history ; Osteoporosis Maternal Grandmother Osteopo rosis; Diabetes Mother Diabetes mellit us; Heart attack Mother Myocardial infa rction; Hyperlipidemia Mother Hyperlipidemi a; Hypertension Mother Hypertension; Relation Name Status Comments Father Maternal Grandmother Mother Social History Tobacco Use Types Packs/Day Years [...] on file Legal Sex Female 8:58 AM FACILITIES MAINTENANCE MANAGER Gender Identity Not on file Sexual Orientation Not on file Obstetrics History Last Filed Vital Signs Vital Sign Reading [...] 170.2 cm (5' 7) 05/07/2020 4:36 PM FACILITIES MAINTENANCE MANAGER Body Mass Index 35.24 05/07/2020 4:36 PM FACILITIES MAINTENANCE MANAGER Plan of Treatment Health Maintenance Due Date Last Done Comments Depression Screening 1987 Varicella Vaccines (1 of 2 - 13+ 2-dose series) 2000 Regular Well Visit/Exam 18-64 2005 Pneumococcal vaccine <65 (1 of 2 - PCV) 2006 Cervical Cancer Screening 02/11/2014 02/11/2013 DTaP/Tdap/Td Vaccine (7 - Td or Tdap) 03/26/2023 03/26/2013, 10/28/2001, 01/11/1993, Additional history exists Influenza Vaccine (Season Ended) 2024 02/02/2015 Hepatitis B Screening Completed 10/28/2001 , 02/22/2001, 01/08/2001 Hepatitis C Screening Completed 02/11/2013 HPV Vaccines Aged Out No longer eligi ble based on patient's age to complete this topic Procedures Procedure Name Priority Date/Time Associated Diagnosis [...] HEPATITIS C ANTIBODY Routine 02/11/2013 1:16 PM FACILITIES MAINTENANCE MANAGER THINPREP IMAGING PAP REFLEX HPV MRNA E6/E7 Routine 02/11/2013 1:16 PM FACILITIES MAINTENANCE MANAGER from Last 3 Months or Most Recently [...] tendency for uric acid stone formation. Source: [facility] Current Interpretive Data was last revised on [...] [facility] ([place]) Leukocyte esterase, ur 1+(A) Negative [facility] ([place]) UA reflex comment Reflex to microscopic UA will be performed. [facility] ([place]) Urine 06/16/2024 8:27 PM CDT 06/16/2024 8:31 PM CDT Car Rosas MD LAB MICROBIOLOGY - GENERAL O RDERABLES Final Result [facility] ([place] 1 [facility] Department [place] [address] * Drugs of Abuse Screen, Urine without [...] 2022. Barbiturates, ur Not Detected CutOff 200ng/mL [facility] ([place]) Comment: Interpretive Data - Barbiturates: Samples containing greater than 200 ng/mL secobarbital or other cross-reacting barbiturate compounds are reported as positive. False positive and false negative results are possible. Confirmatory testing required for definitive results. Current Interpretive Data was last reviewed 2022. Benzodiazepines, ur Not Detected CutOff 100ng/mL [facility] ([place]) Comment: Interpretive Data - Benzodiazepines: Samples containing greater than 100 ng/mL nordiazepam or other cross-reacting compounds are reported as positive. False positive and false negative results are possible. Confirmatory testing required for definitive results. Current Interpretive Data was last reviewed 2022. Cannabinoids, ur Not Detected CutOff 50 ng/mL [facility] ([place]) Comment: Interpretive Data - Cannabinoids: Samples [...] Phencyclidine, ur Not Detected CutOff 25 ng/mL [facility] ([place]) Comment: Interpretive Data - Phencyclidine: Samples containing greater than 25 ng/mL phencyclidine or other cross-reacting compounds are reported as positive. False positive and false negative results are possible. Confirmatory testing required for definitive results. Current Interpretive Data was last reviewed 2022. Urine Creatinine 206 mg/dL [facility] ([place]) Comment: Interpretive Data Urine Creatinine: < 10 mg/dL is extremely dilute = or > 10 but < 20 mg/dL is dilute = or > 20 mg/dL is normal Current Interpretive Data was last revised on 2017. Urine 06/16/2024 8:27 PM CDT 06/16/2024 8:31 PM CDT Narrative [facility] ([place]) - 06/16/2024 9:13 PM CDT Drug of Abuse screening is performed by immunoassay for medical purposes only. This is not to be used for Pain Management purposes. Car Rosas MD LAB URINE ORDERABLES Final R esult Performing Organization Address City/[facility]/ZIP Co de Phone Number [facility] ([place]) 1 [facility] Department [place] [address] * hCG, urine, qualitative (06/16/2024 8:27 PM CDT) HCG, ur Negative Negative Urine 06/16/2024 8:27 PM CDT 06/16/2024 8:41 PM CDT Car Rosas MD LAB URINE ORDERABLES Final R esult Performing Organization Address City/[facility] Co de Phone Number [facility] ([place]) [address] [facility] [place] [address] * (ABNORMAL) Urinalysis, microscopic only (06/16/2024 8:27 PM CDT) WBC, ur 0-5 0 - 5 /HPF RBC, ur 0-2 0 - 2 /HPF [facility] ([place]) Epithelial cells, squamous, ur 1-5 0 - 5 /HPF [facility] ([place]) Bacteria, ur Trace(A) [facility] ([place]) Mucous, ur Present(A) [facility] ([place]) Culture Reflex Comment Reflex conditions for urine culture (WBC >10) not met. [facility] ([place]) Urine 06/16/2024 8:27 PM CDT 06/16/2024 8:41 PM CDT Car Rosas MD LAB URINE ORDERABLES Final R esult Performing Organization Address City/[facility]/ZIP Co de Phone Number [facility] ([place]) 1 [facility] [place] [address] * Troponin T high-sensitivity 4-hour (06/16/2024 8:18 PM CDT) Trop T hs <6 <=14 ng/L Comment: Interpretive Data For further hscTnT resources including the diagnostic algorithm and an aid in interpretation, copy and paste this link: https://nrl.testcatalog.org/show/hsTrop Current Interpretive Data last revised 2020. Trop T hs delta 0 ng/L [facility] ([place]) Trop T hs interp Insignificant [facility] ([place]) Blood 06/16/2024 8:18 PM CDT 06/16/2024 8:21 PM CDT Car Rosas MD LAB BLOOD ORDERABLES Final R esult Performing Organization Address [facility] Co de Phone Number [facility] ([place]) [address] [place] [address] [place] [address] * CRP (acute phase) (06/16/2024 8:17 PM CDT) CRP 4.4 <=10.0 mg/L Blood 06/16/2024 8:17 PM CDT 06/16/2024 8:37 PM CDT Car Rosas MD LAB BLOOD ORDERABLES Final R esult [facility] ([place]) 1 [facility] [place] [address] * Troponin T high-sensitivity 2-hour (06/16/2024 7:06 PM CDT) Trop T hs <6 <=14 ng/L Comment: Interpretive Data For further hscTnT resources including the diagnostic algorithm and an aid in interpretation, copy and paste this link: https://nrl.testcatalog.org/show/hsTrop Current Interpretive Data last revised 2020. Trop T hs delta 0 ng/L [facility] ([place]) Trop T hs interp Insignificant [facility] ([place]) Blood 06/16/2024 7:06 PM CDT 06/16/2024 7:09 PM CDT us Car Rosas MD LAB BLOOD ORDERABLES Final R esult [facility] ([place]) 1 [facility] Department [place] [address] * XR Chest 1 Vw Portable (if [...] Nate Ferrara M.D. KH: ROSA Report ID: [id number] Reading Location: [id number] Procedure Note Nate Ferrara MD - 06/16/2024 [...] Nate Ferrara M.D. KH: ROSA Report ID: [id number] Reading Location: [id number] Car Rosas MD IMG XR PROCEDURES Final [...] BLOOD ORDERABLES Final R esult [facility] [place]) 1 [facility] [place] [place] [address] * eGFR (06/16/2024 4:34 PM CDT) Pathologist [facility] eGFR >90 >=60 mL/min/1. 73 m2 [...] MD LAB BLOOD ORDERABLES Final R esult [facility] ([place]) 1 [facility] Department [place] [address] * (ABNORMAL) Differential, auto (06/16/2024 4:34 PM CDT) Pathologist [facility] Neutrophil abs 8.5(H) 1.5 - 6.5 K/cumm [...] 4:34 PM CDT 06/16/2024 4:36 PM CDT us Car Rosas MD LAB BLOOD ORDERABLES Final R esult [facility] ([place]) 1 [facility] Department [place] [address] * Pro B-type natriuretic peptide (06/16/2024 4:34 [...] Heart J. 2006:27:330-337. 2. Flory RW, Thanh AM. J. AM Zulay Cardiol: Cardiovasc Imag. 2009;2: 216- 225. Interpretive Data Last Revised Date: 2017. Blood 06/16/2024 4:34 PM CDT 06/16/2024 7:47 PM CDT us Car Rosas MD LAB BLOOD ORDERABLES Final R esult [facility] ([place]) 1 [facility] Department of Laboratories [place], [place] [id number] * (ABNORMAL) CBC with auto differential (06/16/2024 4:34 PM CDT) WBC 14.9(H) 3.8 - 9.9 K/cumm Hgb 14.5 11.9 - 15.5 g/dL [facility] ([place]) Hct 42.8 35.6 - 45.5 % [facility] ([place]) Plt 269 150 - 400 K/cumm [facility] ([place]) MPV 9.4 9.1 - 12.3 fL [facility] ([place]) RBC 4.63 3.90 - 5.20 M/cumm [facility] ([place]) MCV 92.4 81.3 - 96.4 fL [facility] ([place]) MCH 31.3 27.1 - 33.3 pg [facility] ([place]) MCHC 33.9 32.3 - 35.7 g/dL [facility] ([place]) RDW CV 12.7 11.1 - 14.9 % [facility] ([place]) RDW SD 43.2 35.7 - 48.1 fL [facility] ([place]) NRBC abs 0.00 0.00 - 0.01 K/cumm [facility] ([place]) Blood Venous blood specimen / Unknown 06/16/2024 4:34 PM CDT 06/16/2024 4:36 PM CDT us Car Rosas MD LAB BLOOD ORDERABLES Final R esult [facility] ([place]) 1 [facility] Department of Laboratories [place], [place] [id number] * D-dimer, quantitative (06/16/2024 4:34 PM CDT) D-Dimer 314 <=499 ng/mL FEU [facility] ([place]) Comment: Interpretive data FDA approved [...] 68, VTE cut-off 680 ng/ml FEU. References; Schouten HT et al. Brit Med J. 2013;346:f2492. Uvaldo et al. Annals Int Med. 2015;163:701-11. Current interpretive data was last revised on 2019. Blood 06/16/2024 4:34 PM CDT 06/16/2024 7:47 PM CDT Car Rosas MD LAB BLOOD ORDERABLES Final R esult [facility] ([place]) 1 [facility] Department [place] [address] * Comprehensive metabolic panel (06/16/2024 4:34 PM CDT) Sodium 137 135 - 145 mmol/L Potassium, pl 4.1 3.3 - 4.9 mmol/L [facility] ([place]) Chloride 104 97 - 110 mmol/L [facility] ([place]) CO2 23 22 - 32 mmol/L [facility] ([place]) Anion gap 10 2 - 15 mmol/L [facility] ([place]) BUN 12 6 - 25 mg/dL [facility] ([place]) Creatinine 0.81 0.60 - 1.10 mg/dL [facility] ([place]) Glucose 92 70 - 199 mg/dL [facility] ([place]) Comment: Interpretive Data Fasting glucose >/= [...] 2022. Calcium 9.1 8.5 - 10.3 mg/dL [facility] ([place]) Bilirubin, total <0.2 0.1 - 1.2 mg/dL [facility] ([place]) Protein, pl 7.1 6.5 - 8.5 g/dL [facility] ([place]) Albumin 4.4 3.5 - 5.0 g/dL [facility] ([place]) Alk phos 72 40 - 130 Units/L [facility] ([place]) ALT 27 7 - 45 Units/L [facility] ([place]) AST 20 10 - 45 Units/L [facility] ([place]) Comment:Slightly Hemolyzed S pecimen Blood 06/16/2024 4:34 PM CDT 06/16/2024 4:36 PM CDT Car Rosas MD LAB BLOOD ORDERABLES Final R esult Performing Organization Address City/[facility] Co de Phone Number [facility] ([place]) 1 [facility] Department [place] [address] * ECG 12 lead (06/16/2024 4:28 PM CDT) 06/16/2024 4:28 PM CDT Narrative [facility] - 06/17/2024 6:28 AM CDT Vent Rate: 86 bpm RR Interval: 695 msec [place] Interval: 155 msec QRS Duration: 86 msec QT Interval: 338 msec QTC Interval: 381 msec P-R-T [place]: 52 - 28 - 39 degrees IMPRESSION: SINUS RHYTHM NORMAL ECG Electronically Signed By: Carl Guy MD Car Rosas MD ECG ORDERABLES Final Result Performing Organization Address [facility] de Phone Number [facility] [employer] [facility] * ThinPrep Imaging Pap Reflex HPV mRNA E6/E7 (02/11/2013 1:16 PM FACILITIES MAINTENANCE MANAGER) SOURCE: SEE NOTE [facility] HISTORICAL RESULTS Comment:Cervix, [...] has been evaluated with computer assisted technology. Social And Political Studies Professor SEE NOTE QUE [facility] HISTORICAL RESULTS Comment: ABC, CT(ASCP) Test performed at [facility] [address] Director: NICOLE CHIU DO, MPH 02/11/2013 1:16 PM FACILITIES MAINTENANCE MANAGER Humera Toth MD LAB PATHOLOGY ORDER [place] Final Result [facility] HISTORICAL RESULTS * Hepatitis C antibody (02/11/2013 1:16 PM FACILITIES MAINTENANCE MANAGER) Hep C Ab NON-REACT ISAIAH NON-REACT ISAIAH [facility] HISTORICAL RESULTS SIGNAL TO CUT-OFF 0.02 <1.00 [facility] HISTORICAL RESULTS Comment: Test performed at [facility] [place] [address] [place] [address] Director: NICOLE CHIU DO,MPH 02/11/2013 1:16 PM FACILITIES MAINTENANCE MANAGER Humera oTth MD LAB MICROBIOLOGY - GENERAL ORDERABLES Final Result [facility] HISTORICAL RESULTS from Last 3 Months or Most Recently Relevant to Health Maintenance Insurance [place] [address] [facility] Care Teams Director Sales Support Relationship Specialty Start Date End Date Bobby Gonzalez MD [address] [facility] [address] [place] [phone] PCP - General 07/19/16
--- OUTSIDE RECORDS SUMMARY | 2024-09-03 16:58 | XMS_ITS | CONTINUITY OF CARE DOCUMENT ---
Author Name consuelo corkyabelardo Address Unknown Organization [facility] Address [address] [place] [address] [address] [place] [address] Phone [phone] Care Team Providers Care Ambulance Operations Supervisor Name Role Phone Jennifer ERNANDEZ, Mary Beth Unavailable CARLOS ALBERTO RAMON MD Unavailable CARLOS ALBERTO RAMON MD Unavailable PROBLEMS Condition Status Date Provider Notes Palpitations active Abel Livingston Chest pain active Abel Livingston Tobacco abuse active Abel Livingston SOB active Abel Livingston ENCOUNTERS Date Type Provider Location Encounter Diag nosis - In-person encounter Office Visit Mary Beth Rodriguez MD [place] [facility] PalpitationsChest painTobacco abuseSOB VITAL SIGNS Date Observation Value Provider weight E&M 233 [lb_av] Michaelle Melgar Body Mass Index (Ratio) 38.74 kg/m2 Jorge Livingston blood pressure, diastolic 70 mm[Hg] Renato Cabral blood pressure, systolic 120 mm[Hg] Mahsa Cabral oxygen saturation, oximetry 97 % Suha Cabral respiratory rate E&M 18 /min Roge Cabral pulse rate 78 /min Suha estrada weight E&M 232.8 [lb_av] Suha franklin height E&M 65 [in_i] Suha Cantu nson ALLERGIES Allergy Name Onset Date Reaction Criticality Status CODEINE High Criticality active HISTORY OF MEDICATION USE Medication Status Instructions Dates Provider Indications Com ments FLEXERIL active 10 mg tab in the evening Suha Cabral SOCIAL HISTORY Date Observation Value Provider number of grandchildren Mary Beth Livingston social history reviewed E&M revi ewed - no changes required Abel Livingston number of years as a smoker 10 a SuhaCathy Saezenson smoking history, tot al pack/day 0.5 Suha Misha cigarette use yes Suha franklin smoking status Current every day smoker M Jose G Cabral FAMILY HISTORY Family Member Condition Mother Family History of Co ronary Artery Disease: Mother Family History of Di abetes: INSURANCE PROVIDERS Payer name Policy type / Coverage type [place] [facility] libertarian [place] MEDICAID Medicaid [id number] ADVANCE DIRECTIVES Name Date DISCUSSED - NO DECISION MADE TREATMENT PLAN Date Name Performer Electrophysiology: O rders: 9 9204 MOD Complex (CPT-34489) H olter Monitor 24 Hr (CPT-40629) S tress Routine (CPT-21934) F VC - 38927 (15274) F RC - 31191 (22219) D LCO - 05096 (68113) C omplete Echo (CPT-69642) Abel Livingston Electrophysiology:ad vised to quit O rders: 9 9204 MOD Complex (CPT-17966) H olter Monitor 24 Hr (CPT-31608) S tress Routine (CPT-88082) F VC - 10048 (79364) F RC - 85389 (42734) D LCO - 96499 (14464) C omplete Echo (CPT-76234) Abel Livingston Electrophysiology: O rders: E KG (CPT-95806) 9 9204 MOD Complex (CPT-83154) H olter Monitor 24 Hr (CPT-53223) S tress Routine (CPT-15748) F VC - 75704 (81646) F RC - 07664 (32791) D LCO - 62444 (92548) C omplete Echo (CPT-61878) C omplete Echo (CPT-81295) Abel Livingston Electrophysiology: O rders: 9 9204 MOD Complex (CPT-59065) H olter Monitor 24 Hr (CPT-84729) S tress Routine (CPT-74716) F VC - 31550 (98887) F RC - 12206 (32022) D LCO - 93843 (03400) C omplete Echo (CPT-94453) C omplete Echo (CPT-78082) Abel Livingston Date Name Complete Echo DLCO - 46377 FRC - 76359 FVC - 05127 Stress Routine Holter Monitor 24 Hr HISTORY OF PROCEDURES Procedure Date Procedure Name Provider Procedure Notes S tatus Stress EKG Mary Beth Rodriguez MD comp leted Holter, 24 or 48 Mary Beth Rodriguez MD completed FVC / MVV - 62369 Mary Beth Rodriguez MD completed BLOOD COUNT HEMOGLOBIN Mary Beth Rodriguez MD completed FRC - 00731 Mary Beth Rodriguez MD com pleted SpO2 w/o 6min walk/titration Mary Beth Rodriguez MD completed DLCO - 41779 Mary Beth Rodriguez MD co mpleted EKG Mary Beth Rodriguez MD comp leted
--- OUTSIDE RECORDS SUMMARY | 2024-09-03 16:59 | XMS_ITS | CONTINUITY OF CARE DOCUMENT ---
Author Name consuelo corkyabelardo Address Unknown Organization [facility] Address [address] [place] [address] [address] [place] [address] Phone [phone] Care Team Providers Care Kayak Maker Name Role Phone Jennifer ERNANDEZ, Mary Beth Unavailable CARLOS ALBERTO RAMON MD Unavailable [phone] CARLOS ALBERTO RAMON MD Unavailable PROBLEMS Condition Status Date Provider Notes Palpitations active Abel Livingston Chest pain active Abel Livingston Tobacco abuse active Abel Livingston SOB active Abel Livingston ENCOUNTERS Date Type Provider Location Encounter Diag nosis - In-person encounter Office Visit Mary Beth Rodriguez MD [place] [facility] PalpitationsChest painTobacco abuseSOB VITAL SIGNS Date [...] Payer name Policy type / Coverage type [facility] republican ID [place] MEDICA[place] Medicaid [id number] ADVANCE DIRECTIVES Name Date DISCUSSED - NO DECISION MADE TREATMENT PLAN Date Name Performer Electrophysiology: O rders: 9 9204 MOD Complex (CPT-85384) H olter Monitor 24 Hr (CPT-82162) S tress Routine (CPT-55633) F VC - 51687 (79587) F RC - 97104 (34198) D LCO - 29190 (10757) C omplete Echo (CPT-07177) Abel Livingston Electrophysiology:ad vised to quit O rders: 9 9204 MOD Complex (CPT-26734) H olter Monitor 24 Hr (CPT-63163) S tress Routine (CPT-10742) F VC - 22253 (94334) F RC - 46270 (82232) D LCO - 51654 (97410) C omplete Echo (CPT-50521) Abel Livingston Electrophysiology: O rders: E KG (CPT-37894) 9 9204 MOD Complex (CPT-08651) H olter Monitor 24 Hr (CPT-71301) S tress Routine (CPT-30771) F VC - 55339 (62567) F RC - 88320 (59179) D LCO - 41830 (03886) C omplete Echo (CPT-06693) C omplete Echo (CPT-20002) Abel Livingston Electrophysiology: O rders: 9 9204 MOD Complex (CPT-94434) H olter Monitor 24 Hr (CPT-49889) S tress Routine (CPT-17980) F VC - 74843 (60987) F RC - 09842 (94767) D LCO - 06881 (72090) C omplete Echo (CPT-00913) C omplete Echo (CPT-75764) Abel Livingston Date Name Complete Echo DLCO - 72602 FRC - 47292 FVC - 34833 Stress Routine Holter Monitor 24 Hr HISTORY OF PROCEDURES Procedure Date Procedure Name Provider Procedure Notes S tatus Stress EKG Mary Beth Rodriguez MD comp leted Holter, 24 or 48 Mary Beth Rodriguez MD completed FVC / MVV - 29357 Mary Beth Rodriguez MD completed BLOOD COUNT HEMOGLOBIN Mary Beth Rodriguez MD completed FRC - 07038 Mary Beth Rodriguez MD com pleted SpO2 w/o 6min walk/titration Mary Beth Rodriguez MD completed DLCO - 96082 Mary Beth Rodriguez MD co mpleted EKG Mary Beth Rodriguez MD comp leted
--- OUTSIDE RECORDS SUMMARY | 2024-09-03 16:59 | XMS_ITS | Clinical Summary ---
Author Organization [facility] Address [address] [place] [address] Phone Care Team Providers Care Supervisor [employer] Name Role Phone Bobby Gonzalez MD Primary Care Provider [phone] Allergies Active Allergy Reactions Criticality Noted Date Comments Amoxicillin-Pot Clavulanate Diarrhea 06/13/19 17 Medications traMADol (ULTRAM) 50 MG Tablet Take 1-2 Tabs by mouth every 6 hours as needed for Moderate or more severe pain. 20 Tab 0 Active predniSONE (DELTASONE) 50 MG Tablet Take 1 Tab by mouth daily. 9 Tab 0 Active Additional Information Patient not taking.Reported on 08/04/2021 diazePAM (VALIUM) 5 MG Tablet Take 1 Tab by mouth every 8 hours as needed for Muscle spasms. 30 Tab 0 Active Additional Information Patient not taking.Reported on 08/04/2021 SUMAtriptan (Imitrex) 50 MG Tablet Take 1 Tablet by mouth once as needed for Migraine for up to 9 doses. Use as directed. May repeat dose in 2 hours if headache recurs. 9 Tablet 1 Active Additional Information Patient not taking.Reported on 08/04/2021 buPROPion (WELLBUTRIN) 300 MG TABLET SR 24 HR XL tablet Take 300 mg by mouth every morning. Active cyclobenzaprine (FLEXERIL) 5 MG Tablet Take 1 Tablet by mouth 3 times daily as needed for Muscle spasms. 15 Tablet 3 Active methylPREDNISol one (MEDROL DOSPACK) 4 MG Tablet Therapy Pack See product package insert for dosing schedule 21 Tablet 3 Active ketorolac (TORADOL) 10 MG Tablet Take 1 Tablet by mouth every 6 hours as needed for Mild or more severe pain. 15 Tablet 3 Active diclofenac (CATAFLAM) 50 MG Tablet Take 1 Tablet by mouth 2 times daily. 60 Tablet 4 Active Social History Tobacco Use Types Packs/Day Years Used Date Smoking Tobacco: Every Day Cigarettes Smokeless Tobacco: Never Alcohol Use Standard Drinks/Week Comments Yes 0 (1 standard drink = 0.6 oz pur e alcohol) Comments No Sex and Gender Information Value Date Recorded Sex Assigned at Not on file Legal Sex Female 12:02 AM CDT Gender Identity Not on file Sexual Orientation Not on file Last Filed Vital Signs Vital Sign Reading Time Taken Comments Blood Pressure 150/86 08/12/2023 7:32 PM CDT Pulse 110 08/12/2023 7:32 PM CDT Temperature 36.6 C (97.9 F) 08/12/2023 7:32 PM CDT Respiratory Rate 18 08/12/2023 7:32 PM CDT Oxygen Saturation 98% 08/12/2023 7:32 PM CDT Inhaled Oxygen Concentration - - Weight 108.9 kg (240 lb) 08/12/2023 7:32 PM CDT Height 170.2 cm (5' 7) 08/12/2023 7:32 PM CDT Body Mass Index 37.59 08/12/2023 7:32 PM CDT Plan of Treatment Health Maintenance Due Date Last Done Comments Hepatitis C Virus (HCV) Screening 1987 Human Papillomavirus (HPV) Immunization (1 - 3-dose series) 2002 Pap Smear 2008 Cervical Cancer Screening (CCS) 2017 HPV/Cotest 2017 SARS-COV-2 Immunization ( - season) 2023 01/20/2021, 12/30/2020 Influenza Immunization (Season Ended) 2024 02/02/2015 Respiratory Syncytial Virus (RSV) Immunization (Adult) (1 - 1-dose 75+ series) 2062 Hepatitis B Immunization Completed 002, 02/22/2001, 01/08/2001 DTaP/Tdap/Td Immunization Discontinued 2013, 10/28/2001, 01/11/1993, Additional history exists TdaP Immunization Completed 03/26/2013 Meningococcal Immunization (ACWY) Aged Out No longer eligible based on patient's age to complete this topic Pneumococcal Immunization Combined Aged Out No longer eligible based on patient's age to complete this topic Rotavirus Immunization Aged Out No lo nger eligible based on patient's age to complete this topic Insurance [place] Care Teams Supervisor [employer] Relationship Specialty Start Date End Date Bobby Gonzalez MD [address] [address] PCP - General Internal Medicine 10/01/16
== END 2024-09-03 14:30 | disposition home or self-care (01) ==
PROVIDERS: Emergency Provider Nurse Practitioner Family; PCP Internal Medicine
DX: M54.32 Sciatica, left side (principal); F17.210 Nicotine dependence, cigarettes, uncomplicated
CPT/HCPCS: 99213; G0463